=== PATIENT | female | born 1945 | race Caucasian/White ===

== ENCOUNTER 2020-08-10 09:47 | Outpatient (CLI) | payer OTHER, SELFPAY ==
--- NOTE | ~2020-08-10 | MM_ITS ---
EXAMINATION: MM screening [facility] BI [facility] HISTORY: Screening mammogram TECHNIQUE: Craniocaudal and mediolateral oblique 3-D tomosynthesis images were obtained and synthetic 2-D images were generated. CAD analysis was submitted and interpreted. COMPARISON: 06/19/2019, 03/14/2018, 03/01/2017 BREAST PARENCHYMAL COMPOSITION: There are scattered areas of fibroglandular density. FINDINGS: There is no evidence of suspicious mass, calcification, or architectural distortion to sugg est malignancy in either breast. There has been no suspicious interval change. IMPRESSION: 1. No mammographic evidence of malignancy. 2. Recommend routine screening mammography in one year. BI-RADS Category 1: Negative Reviewed, dictated and finalized at location A.
--- NOTE | ~2020-08-10 | DEXA_ITS ---
Bone Density Report Name: Liang Quigley Age: 74 Sex: Female Ethnicity: White Date of : 1945 Indication: osteopenia; parental hip fracture; height loss; asthma or emphysema; Referring Provider: IVON MOHAN Study: Bone densitometry was performed. Exam Date: August 10, 2020 Accession number: [id number] Bone Density: Region BMD T-score Z-score Classification AP Spine (L1-L4) 0.859 -1.7 0.7 Osteopenia Femoral Neck (Left) 0.585 -2.4 -0.3 Osteopenia Total Hip (Left) 0.747 -1.6 0.2 Osteopenia Total Hip Bilateral Avg 0.751 -1.6 0.2 Osteopenia Femoral Neck (Right) 0.599 -2.3 -0.2 Osteopenia Total Hip (Right) 0.755 -1.5 0.2 Osteopenia World Health Organization criteria for BMD impression classify patients as: Normal (T-score at or above -1.0), Osteopenia (T-score between -1.0 and -2.5), or Osteoporosis (T-score at or below -2.5). 10-year Fracture Risk(1): Major Osteoporotic Fracture 28% Hip Fracture 18% Reported Risk Factors: [place] (), Neck BMD=0.585, BMI=25.4, parental fracture (1) FRAX(R) Version 3.08. Fracture probability calculated for an untreated patient. Fracture probability may be lower if the patient has received treatment. Previous Exams: Region Exam Age BMD T-score BMD Change BMD Change Date g/cm2 vs Baseline vs Previous AP Spine(L1-L4) 08/10/2020 74 0.859 -1.7 -0.071(-7.7%)# -0.014(-1.6%) 03/14/2018 72 0.873 -1.6 -0.057(-6.2%)# 0.016(1.9%) 02/10/2016 70 0.857 -1.7 -0.073(-7.9%)# -0.023(-2.6%)# 09/13/2012 66 0.880 -1.5 -0.051(-5.4%)# -0.081(-8.5%)# 09/01/2010 64 0.961 -0.8 0.031(3.3%)* 0.031(3.3%)* 02/20/2008 62 0.930 -1.1 Total Hip(Left) 08/10/2020 74 0.747 -1.6 -0.118(-13.6%) -0.002(-0.3%) 03/14/2018 72 0.749 -1.6 -0.116(-13.4%) -0.026(-3.3%) 02/10/2016 70 0.774 -1.4 -0.090(-10.4%) -0.050(-6.0%)# 09/13/2012 66 0.824 -1.0 -0.040(-4.7%)# -0.022(-2.7%)# 09/01/2010 64 0.846 -0.8 -0.018(-2.1%) -0.018(-2.1%) 02/20/2008 62 0.864 -0.6 Total Hip(Right) 08/10/2020 74 0.755 -1.5 -0.091(-10.7%) -0.025(-3.2%) 03/14/2018 72 0.780 -1.3 -0.066(-7.8%)# -0.005(-0.6%) 02/10/2016 70 0.785 -1.3 -0.061(-7.2%)# 0.011(1.4%)# 09/13/2012 66 0.774 -1.4 -0.072(-8.5%)# -0.056(-6.8%)# 09/01/2010 64 0.830 -0.9 -0.016(-1.9%) -0.016(-1.9%) 02/20/2008 62 0.846 -0.8 *Denotes significance at 95% confidence level, LSC for AP Spine = 0.022 g/cm2, LSC for Total Hip = 0.027 g/cm2 Clinical Information Provided by Patient:
== END 2020-08-10 09:48 | disposition home or self-care (01) ==
PROVIDERS: PCP Physician Assistant; Visit Provider Obstetrics & Gynecology
DX: Z12.31 Encounter for screening mammogram for malignant neoplasm of breast (principal); Z78.0 Asymptomatic menopausal state; M85.88 Other specified disorders of bone density and structure, other site; M85.852 Other specified disorders of bone density and structure, left thigh; M85.851 Other specified disorders of bone density and structure, right thigh
CPT/HCPCS: 77063; 77067; 77080

== ENCOUNTER 2020-08-23 02:11 | Outpatient (CLI) | payer OTHER, SELFPAY ==
[2020-08-23 20:39] LABS: SARS-CoV-2 RNA PCR Negative
== END 2020-08-23 02:12 | disposition home or self-care (01) ==
LOC: ANHCOVIDDT 02:11
PROVIDERS: PCP Physician Assistant; Visit Provider Internal Medicine Gastroenterology
DX: Z01.818 Encounter for other preprocedural examination (principal); Z20.828 Contact with and (suspected) exposure to other viral communicable diseases
CPT/HCPCS: 87635; C9803; U0003

== ENCOUNTER 2020-08-26 00:14 | Day surgery (SDC) | payer OTHER, SELFPAY ==
[2020-08-20 13:54] VITALS: BMI 24.5
[2020-08-26 06:12] VITALS: BP 120/61; PULSE 82; RESP 18; TEMP 36; O2SAT 93; BMI 24.7
--- NOTE | 2020-08-26 06:34 | WPDANESEPPF ---
Anes - Initial Pre Proc Eval Procedure: Operation Date: 08/26/20 07:30 Proposed Procedures p Screening Colonoscopy - Dwayne Carlson MD Date/Time: 08/26/20 06:34 Surgeon: Dwayne Carlson MD Pre Op Diagnosis: Neoplasm Screening/ Fam Hx Colon Ca Patient Data Age: 74 Gender: F Height: 1.68 m Weight: 69.4 kg Last Vital Signs Temp 36.0 C L 08/26/20 06:12 Pulse 82 08/26/20 06:12 Resp 18 08/26/20 06:12 BP 120/61 08/26/20 06:12 Pulse Ox 93 08/26/20 06:12 Allergies Allergy/AdvReac Type Severity Reaction Status Date / Time NKA Allergy Unknown Unknown Uncoded 08/26/20 06:22 Home Medications Medication Instructions Recorded Confirmed Type calcium carbonate-vitamin D3 600 1 tablet PO DAILY 02/17/20 08/20/20 History mg-125 unit tablet fluticasone propionate 115 2 puff INHALATION BID 02/17/20 08/20/20 History mcg-salmeterol 21 mcg/actuation HFA inhaler multivitamin 1 tablet PO DAILY 02/17/20 08/20/20 History simvastatin 10 mg tablet 40 mg PO DAILY 02/17/20 08/20/20 History montelukast [Singulair] 10 mg DAILY 08/20/20 08/20/20 History Patient hx anesthesia problems: none Family hx anesthesia problems: none PMFSH Past Medical History Medical History (Updated 08/03/20 @ 08:45 by Ugo Richards MD) Adhesive capsulitis of right shoulder Asthma BMI 25.0-25.9,adult High cholesterol History of vaginal delivery x 3 Surgical History Surgical History History of cholecystectomy Family History Family History Father Family history of elevated blood lipids Mother Carcinoma of colon Patient's mother is Other Diabetes mellitus Social History Social History Smoking status: Never smoker Second hand tobacco smoke exposure: No Smoking end date: 10/15/06 Alcohol intake: current Drinks per week: 1 Alcohol use details: SOCIALLY Substance use: never Substance use type: does not use Living arrangements: with family Gender identity (if verbalized by the patient): Female Sexual Orientation (if Verbalized by the Patient): Straight or Heterosexual Spiritual care concerns: No Anes - Eval Final PreProcedure Day of Procedure 08/26/20 06:34 Patient weight: normal Heart: regular rate and rhythm Lungs: clear to auscultation and normal air movement Airway: Mallampati scale class II Neurological: alert and oriented Last oral intake: >/= 8 hours ASA classification: II Emergent: no Anesthetic plan: proceed Anesthesia type and monitoring: general GIVS Informed Consent: The patient's anesthetic plan and its attendant risks and benefits were discussed with the patient/family/POA. Questions were solicited and answers provided to the satisfaction of the patient/family/POA.
[2020-08-26] MEDS: LACTATED RINGERS 1,000 ML 150 ML IV CONT (06:41)
--- NOTE | 2020-08-26 07:48 | P.CONGI_ITS ---
Assessment and Plan Assessment and plan (1) Family history of colon cancer in mother: Code(s): Z80.0 - Family history of malignant neoplasm of digestive organs Status: Acute Assessment and Plan: Patient's mother had colon cancer. Plan is for surveillance colonoscopy at least at 5 year intervals. GI Consult Note Consult date/time: 08/26/20 07:48 HPI: Liang Quigley is a 74 year old female Seen in evaluation at the request of MORGAN Cano. patient's family history is significant her mother had colon cancer. She presents today for screening colonoscopy. She still states that her current weight appetite bowel movements are normal. She denies abdominal pain. She has had no bleeding. Her last colonoscopy was 5 years ago. Review of Systems Review of Systems: All systems reviewed & are unremarkable except as noted in HPI and below PMFSH Past Medical History Medical History (Updated 08/26/20 @ 07:49 by Dwayne Carlson MD) Adhesive capsulitis of right shoulder Asthma BMI 25.0-25.9,adult High cholesterol History of vaginal delivery x 3 Surgical History Surgical History History of cholecystectomy Family History Family History Father Family history of elevated blood lipids Mother Carcinoma of colon Patient's mother is Other Diabetes mellitus Social History Social History Smoking status: Never smoker Second hand tobacco smoke exposure: No Smoking end date: 10/15/06 Alcohol intake: current Drinks per week: 1 Alcohol use details: SOCIALLY Substance use: never Substance use type: does not use Living arrangements: with family Gender identity (if verbalized by the patient): Female Sexual Orientation (if Verbalized by the Patient): Straight or Heterosexual Spiritual care concerns: No Meds Home Medications and Allergies Home Medications Medication Instructions Recorded Confirmed Type calcium carbonate-vitamin D3 600 1 tablet PO DAILY 02/17/20 08/20/20 History mg-125 unit tablet fluticasone propionate 115 2 puff INHALATION BID 02/17/20 08/20/20 History mcg-salmeterol 21 mcg/actuation HFA inhaler multivitamin 1 tablet PO DAILY 02/17/20 08/20/20 History simvastatin 10 mg tablet 40 mg PO DAILY 02/17/20 08/20/20 History montelukast [Singulair] 10 mg DAILY 08/20/20 08/20/20 History Allergies Allergy/AdvReac Type Severity Reaction Status Date / Time NKA Allergy Unknown Unknown Uncoded 08/26/20 06:22 Vital Signs Vital Signs - 24 hr 08/26/20 06:12 Temperature 96.8 F L Pulse Rate 82 Respiratory Rate 18 Blood Pressure 120/61 Pulse Oximetry 93 Exam Narrative: Exam Narrative: Physical exam reveals patient be alert. Vital signs stable. HEENT exam unremarkable. Lungs are clear to auscultation and percussion. Heart is without murmur or extra sounds. Abdominal exam bowel so unds are present soft nontender with no organomegaly. Digital external rectal exam normal.
[2020-08-26 07:51] VITALS: BP 90/40; PULSE 74; RESP 21; O2SAT 95
[2020-08-26 08:00] VITALS: BP 85/64; PULSE 71; RESP 17; O2SAT 97
[2020-08-26 08:10] VITALS: BP 107/68; PULSE 67; RESP 17; O2SAT 97
== END 2020-08-26 08:27 | disposition home or self-care (01) ==
PROVIDERS: PCP Physician Assistant; Visit Provider Internal Medicine Gastroenterology
PROC: 0DJD8ZZ Inspection of Lower Intestinal Tract, Via Natural or Artificial Opening Endoscopic (ICD-10-PCS; CPT 45378; principal; 2020-08-26 07:30)
DX: Z12.11 Encounter for screening for malignant neoplasm of colon (principal); D12.2 Benign neoplasm of ascending colon; K57.30 Diverticulosis of large intestine without perforation or abscess without bleeding; K64.8 Other hemorrhoids; Z80.0 Family history of malignant neoplasm of digestive organs; J45.909 Unspecified asthma, uncomplicated; E78.00 Pure hypercholesterolemia, unspecified
CPT/HCPCS: 45385; 88305; J2704; J7120

== ENCOUNTER 2020-09-24 10:00 | Outpatient (RCR) | payer OTHER, SELFPAY ==
--- NOTE | 2020-08-13 13:36 | PTOPEVAL ---
PHYSICAL THERAPY EVALUATION Thank you for referring Liang Quigley to [facility].? Liang was evaluated today for the dx of right shoulder adhesive capsulitis. The patient is scheduled to be seen for therapy? 2 x/week for 4 weeks. Please review, sign, date and return this plan of care BURCE. I agree with and certify that the following plan of care is medically necessary. Referring Physician Date Attending Provider: Ugo Richards MD *PT Outpatient Evaluation Start: 08/13/20 12:32 Freq: Status: Active Protocol: Document 08/13/20 12:32 MLV (Rec: 08/13/20 13:36 [facility] [id number]) Therapy Assessment Status Evaluation Information Problem Diagnosis right adhesive capsulitis Onset 6-8 months Cause none Additional Evaluation Detail Patient started having trouble dressing/reaching behind her back then having trouble with golfing. Patient doesn't have pain at night or if still. Subjective Information Patient denies prior issues at Query Text:As Reported By Patient/ right shoulder, but has hx of Family PT to left shoulder for impingement. Diagnostic Tests X-Rays For This Problem Yes: clear Pain Assessment Timing of Pain Assessment Timing of Pain Assessment Assessment Pain Scale Pain Scale Used Numeric (1 - 10) Self Report Pain Assessment Right Shoulder(s) Reported Pain Level 0 Pain Description With Movement Pain Frequency Acute Greatest Pain Intensity 5 Additional Pain Comments Dash score 20% Pain Score Pain Score 0: Self Report Interventions Used Interventions Used By Clinicians Education,Exercise,Heat Pain Relief Interventions Used By Inactivity/Rest Patient Upper Extremity Range of Motion General Upper Extremity Range of Motion Gross Upper Extremity Range of Motion left shoulder: flexion 157, Comments abduction 160, extension 86 ER 95, IR 85 degrees active right shoulder: flexion 129, abduction 147, extension 72 ER 71, IR 64 degrees active * edna. elbows/wrists WNL's Upper Extremity Muscle Strength Testing General Upper Extremity Strength Reason Not Measured WFL/Left,WFL/Right Posture Posture Standing Position Posture Evaluation View all Head/C-Spine Posture Neutral Position Thoracic Spine Posture Neutral Shoulder Posture (L) Rounded,(R) Rounded Scapula Posture (L) Protracted,(R) Protracted Arm Posture
--- NOTE | 2020-09-08 09:54 | PCPTNOTE ---
Patient did not show up for scheduled appointment this date. Patient was called-did not remember having an appointment today. Plan to reschedule missed appointment when patient comes for next appt. on Sunday.
--- NOTE | 2020-09-24 10:48 | PTOPEVAL ---
Addendum entered by Adrianne Guevara, PT 09/24/20 10:51: PHYSICAL THERAPY DISCHARGE SUMMARY Original Note: Thank you for referring Liang Quigley to [facility].? The patient has been seen 10 visits for right shoulder adhesive capsulitis. Goals have been met and patient will continue home program. Please review, sign, date and return this plan of care BRUCE. I agree with and certify the following plan of care. Referring Physician Date Attending Provider: Ugo Richards MD *PT Outpatient Evaluation Start: 08/13/20 12:32 Freq: Status: Active Protocol: Document 09/24/20 10:00 MLV (Rec: 09/24/20 10:48 MLV [id number]) Assessment Status Discharge Pain Assessment Timing of Pain Assessment Timing of Pain Assessment Assessment Self Report Self Report Pain Level 0 Pain Score Pain Score 0: Self Report Upper Extremity Range of Motion General Upper Extremity Range of Motion Gross Upper Extremity Range of Motion right shoulder active motion Comments improved: flexion 173 dg, abduction 175 dg, ER 90 dg, IR 80 dg, extension 80 degrees Upper Extremity Muscle Strength Testing General Upper Extremity Strength Reason Not Measured WFL/Left,WFL/Right Palpation Assessment Palpation improved capsular mobility 75/ 100% right shoulder PT Clinical Summary Mrs. Quigley has completed 10 visits for progressive shoulder/capsular mobility with modalities prn. Liang has gained full motion and good capsular mobility. The patient reports no limits to her normal activities or use of right arm. Goals have been met.
== END 2020-09-27 10:55 | disposition home or self-care (01) ==
LOC: ANHPT 10:00
PROVIDERS: PCP Physician Assistant; Visit Provider Orthopaedic Surgery
DX: M75.00 Adhesive capsulitis of unspecified shoulder (principal)
CPT/HCPCS: 97110; 97140; 97161

== ENCOUNTER 2021-10-19 11:34 | Outpatient (CLI) | payer OTHER, SELFPAY ==
--- NOTE | ~2021-10-19 | MM_ITS ---
EXAMINATION: MM screening [facility] BI [facility] HISTORY: Screening mammogram TECHNIQUE: Craniocaudal and mediolateral oblique 3-D tomosynthesis images were obtained and synthetic 2-D images were generated. CAD analysis was submitted and interpreted. COMPARISON: 08/10/2020, 06/19/2019, 03/14/2018 BREAST PARENCHYMAL COMPOSITION: There are scattered areas of fibroglandular density. FINDINGS: There is no evidence of suspicious mass, calcification, or architectural distortion to sugg est malignancy in either breast. There has been no suspicious interval change. IMPRESSION: 1. No mammographic evidence of malignancy. 2. Recommend routine screening mammography in one year. BI-RADS Category 2: Benign finding(s). Reviewed, dictated and finalized at location A. E GROWER
== END 2021-10-19 11:35 | disposition home or self-care (01) ==
LOC: ANHIMG 11:39
PROVIDERS: PCP Physician Assistant; Visit Provider Obstetrics & Gynecology
DX: Z12.31 Encounter for screening mammogram for malignant neoplasm of breast (principal)
CPT/HCPCS: 77063; 77067

== ENCOUNTER 2023-02-16 09:28 | Outpatient (CLI) | payer OTHER, SELFPAY ==
--- NOTE | ~2023-02-16 | MM_ITS ---
EXAMINATION: MM screening [facility] BI [facility] HISTORY: Screening mammogram TECHNIQUE: Craniocaudal and mediolateral oblique 3-D tomosynthesis images were obtained and synthetic 2-D images were generated. CAD analysis was submitted and interpreted. COMPARISON: 10/19/2019 12/10/2019 519 BREAST PARENCHYMAL COMPOSITION: There are scattered areas of fibroglandular density. FINDINGS: No suspicious mass, calcification, or architectural distortion are identified in either myla ast to suggest malignancy. There has been no suspicious interval change. IMPRESSION: 1. No mammographic evidence of malignancy. 2. Recommend routine screening mammography in one year. BI-RADS Category 1: Negative Reviewed, dictated and finalized at location A.
--- NOTE | ~2023-02-16 | DEXA_ITS ---
Bone Density Report Name: ROSALIA ROONEY Age: 77 Sex: Female Ethnicity: White Date of : 1945 Indication: osteopenia; height loss; asthma or emphysema; postmenopausal Referring Provider: IVON MOHAN Study: Bone densitometry was performed. Exam Date: February 16, 2023 Accession number: [id number] Bone Density: Region BMD T-score Z-score Classification AP Spine(L1-L4) 0.838 -1.9 0.6 Osteopenia Femoral Neck (Left) 0.563 -2.6 -0.4 Osteoporosis Total Hip (Left) 0.734 -1.7 0.2 Osteopenia Femoral Neck (Right) 0.594 -2.3 -0.1 Osteopenia Total Hip (Right) 0.731 -1.7 0.2 Osteopenia Total Hip Mean 0.733 -1.7 0.2 Osteopenia World Health Organization criteria for BMD impression classify patients as: Normal (T-score at or above -1.0), Osteopenia (T-score between -1.0 and -2.5), or Osteoporosis (T-score at or below -2.5). 10-year Fracture Risk: FRAX not reported because: Some T-score for Spine Total or Hip Total or Femoral Neck at or below -2.5 Previous Exams: Region Exam Age BMD T-score BMD Change BMD Change Date g/cm2 vs Baseline vs Previous AP Spine (L1-L4) 02/16/2023 77 0.838 -1.9 -0.042 (-4.7%) -0.021 (-2.4%) 08/10/2020 74 0.859 -1.7 -0.021 (-2.4%) -0.014 (-1.6%) 03/14/2018 72 0.873 -1.6 -0.007 (-0.8%) 0.016 (1.9%) 02/10/2016 70 0.857 -1.7 -0.023 (-2.6%) -0.023 (-2.6%) 09/13/2012 66 0.880 -1.5 Total Hip(Left) 02/16/2023 77 0.734 -1.7 -0.090 (-10.9% -0.012 (-1.6%) 08/10/2020 74 0.747 -1.6 -0.077 (-9.4%) -0.002 (-0.3%) 03/14/2018 72 0.749 -1.6 -0.075 (-9.1%) -0.026 (-3.3%) 02/10/2016 70 0.774 -1.4 -0.050 (-6.0%) -0.050 (-6.0%) 09/13/2012 66 0.824 -1.0 Total Hip(Right) 02/16/2023 77 0.731 -1.7 -0.043 (-5.5%) -0.024 (-3.2%) 08/10/2020 74 0.755 -1.5 -0.019 (-2.4%) -0.025 (-3.2%) 03/14/2018 72 0.780 -1.3 0.006 (0.8%)# -0.005 (-0.6%) 02/10/2016 70 0.785 -1.3 0.011 (1.4%)# 0.011 (1.4%)# 09/13/2012 66 0.774 -1.4 *Denotes significance at 95% confidence level, LSC for AP Spine = 0.022 g/cm2, LSC for Total Hip = 0.027 g/cm2 # Denotes dissimilar scan types or analysis methods Clinical Information Provided by Patient: Has used the following medications: Vitamin D, Calcium Has the following medical conditions: Asthma or Emphysema Patient maximum height was 67 Menopause Age: 54 Drinks caffeinated beverages Onset of menses at age 10 Number of children 3
== END 2023-02-16 09:29 | disposition home or self-care (01) ==
LOC: ANHIMG 09:31
PROVIDERS: PCP Physician Assistant; Visit Provider Obstetrics & Gynecology
DX: Z12.31 Encounter for screening mammogram for malignant neoplasm of breast (principal); M85.88 Other specified disorders of bone density and structure, other site; M81.0 Age-related osteoporosis without current pathological fracture; M85.852 Other specified disorders of bone density and structure, left thigh; M85.851 Other specified disorders of bone density and structure, right thigh
CPT/HCPCS: 77063; 77067; 77080

== ENCOUNTER 2023-05-13 11:42 | Emergency (ER) | payer OTHER, SELFPAY ==
[2023-05-13 11:43] VITALS: BP 145/59; PULSE 88; RESP 16; TEMP 36.3; O2SAT 94
[2023-05-13] MEDS: LIDOCAINE HCL 2% VISC SOLN 15 ML UDC (12:43)
--- NOTE | 2023-05-13 12:49 | ED.EAR ---
HPI - Ear Problem General Chief complaint: Ear Stated complaint: bug in R ear Time Seen by Provider: 05/13/23 12:09 History of Present Illness HPI Narrative: This is a 77-year-old female with no significant past medical history, presents emergency department with a suspected insect in her right ear. The patient states she was at her pool, when she felt an insect fly into her ear. She attempted to remove it herself but believes she pushed it further back. She complains of sharp, right-sided ear pain, rated 4/10. She has no other complaints today. Related Data Home Medications Medication Instructions Recorded Confirmed multivitamin (Daily Multi-Vitamin 1 tablet PO DAILY 02/17/20 04/20/23 tablet) simvastatin 10 mg tablet (Zocor) 40 mg PO DAILY 02/17/20 04/20/23 montelukast 10 mg tablet 10 mg DAILY 08/20/20 04/20/23 (Singulair) latanoprost 0.005 % eye drops 1 drp EACH EYE DAILY 12/06/22 04/20/23 cholecalciferol (vitamin D3) 25 25 mcg PO DAILY 04/20/23 04/20/23 mcg (1,000 unit) capsule fluticasone furoate 100 1 inh inhalation DAILY 04/20/23 04/20/23 mcg-vilanterol 25 mcg/dose inhalation powder (Breo Ellipta) triamcinolone acetonide 0.05 % 1 applic topical DAILY 04/20/23 04/20/23 topical ointment Allergies Allergy/AdvReac Type Severity Reaction Status Date / Time NKA Allergy Unknown Unknown Uncoded 05/13/23 12:25 Review of Systems Review of Systems: CONSTITUTIONAL: Denies fever, chills, or sweats. ENT: Right ear pain, suspected foreign object in right ear denies rhinorrhea, congestion, sore throat, CARDIOVASCULAR: Denies chest pain, palpitations, or edema. RESPIRATORY: Denies cough or dyspnea. GASTROINTESTINAL: Denies abdominal pain, nausea, vomiting, or diarrhea. MUSCULOSKELETAL: Denies back pain, joint pain, or myalgia. NEUROLOGIC: Denies headache, numbness, dizziness, or weakness. [facility] Past Medical History Medical History Adhesive capsulitis of right shoulder Asthma BMI 25.0-25.9,adult High cholesterol History of vaginal delivery x 3 Surgical History Surgical History History of bilateral tubal ligation History of cholecystectomy Hx of hand surgery Family History Family History Father Family history of elevated blood lipids Mother Carcinoma of colon Patient's mother is Other Diabetes mellitus Social History Social History Smoking status: Former smoker Second hand tobacco smoke exposure: No Smoking end date: 10/15/06 Alcohol intake: current Drinks per week: 1 Alcohol use details: SOCIALLY Substance use: never Substance use type: does not use Lack of Transportation: No Lack of Food: Never True Current Housing: I Have Housing Concerned About Future Housing: No Difficulty Paying Gas/Electric Bills: No Difficulty Paying for Meds: No Currently Unemployed: No Education: High School Diploma/GED Difficulty w/ Childcare or Family Care: No Living arrangements: with family Occupation/Education: retired Gender identity (if verbalized by the patient): Female Sexual Orientation (if Verbalized by the Patient): Straight or Heterosexual Spiritual care concerns: No Exam Narrative: GENERAL: Well-developed, well-nourished, and in no acute distress. HEAD: Normocephalic, atraumatic. EYES: PERRLA and EOMI. ENT: Nares clear, no rhinorrhea or epistaxis. Mucous membranes moist. Oropharynx without tonsillar hypertrophy exudate or other lesions. There is a foreign object in the right ear that appears consistent with a small insect. There is small amount of erythema noted at the superior aspect of the right TM and to the 11 o'clock position. TM appears intact. The left TM and external auditory canal appear
[2023-05-13 13:35] VITALS: BP 144/82; PULSE 69; RESP 18; O2SAT 94
== END 2023-05-13 13:37 | disposition home or self-care (01) ==
PROVIDERS: Emergency Provider Preventive Medicine Aerospace Medicine; PCP Physician Assistant
DX: T16.1XXA Foreign body in right ear, initial encounter (principal); J45.909 Unspecified asthma, uncomplicated; E78.00 Pure hypercholesterolemia, unspecified; Z90.49 Acquired absence of other specified parts of digestive tract; Z87.891 Personal history of nicotine dependence
CPT/HCPCS: 69200; 99282

== ENCOUNTER 2023-10-02 02:00 | Day surgery (SDC) | payer OTHER, SELFPAY ==
[2023-09-17 09:24] VITALS: BMI 24.2
--- NOTE | 2023-09-28 10:22 | SUR.PREOP ---
Patient called regarding upcoming procedure. Message left on pt's voicemail regarding appointment times.
[2023-10-02] MEDS: LACTATED RINGERS 1,000 ML 150 ML IV CONT (09:08)
[2023-10-02 09:13] VITALS: BP 117/48; PULSE 78; RESP 18; TEMP 36.2; O2SAT 95
--- NOTE | 2023-10-02 09:52 | PM.HPGS ---
History of Present Illness History of Present Illness Consent: Risks, benefits, and alternatives have been discussed and questions answered. Patient agrees to proceed with procedure. Chief complaint: history of colon polyps Narrative: Liang Quigley is a 77 year old female Presents for screening colonoscopy. Patient's current weight appetite and bowel movements are normal. Patient denies abdominal pain. She has had no bleeding. Family history noncontributory. Patient was found to have adenomatous colon polyp the time previous colonoscopy in 2019. Review of Systems Review of Systems: Review of systems noncontributory. [facility] Past Medical History Medical History Adhesive capsulitis of right shoulder Asthma BMI 25.0-25.9,adult High cholesterol History of vaginal delivery x 3 Surgical History Surgical History History of bilateral tubal ligation History of cholecystectomy Hx of hand surgery Family History Family History Father Family history of elevated blood lipids Mother Carcinoma of colon Patient's mother is Other Diabetes mellitus Social History Social History Smoking packs per day: 1 Smoking cigarettes per day: 20.0 Years smoked: 25 Smoking pack-years: 25.00 Smoking status: Former smoker Second hand tobacco smoke exposure: No Smoking end date: 10/15/06 Alcohol intake: current Drinks per week: 1 Alcohol use details: socially Substance use: never Substance use type: does not use Lack of Transportation: No Lack of Food: Never True Current Housing: I Have Housing Concerned About Future Housing: No Difficulty Paying Gas/Electric Bills: No Difficulty Paying for Meds: No Currently Unemployed: No Education: High School Diploma/GED Difficulty w/ Childcare or Family Care: No Living arrangements: other Additional living arrangements comments: with sp Occupation/Education: retired Gender identity (if verbalized by the patient): Female Sexual Orientation (if Verbalized by the Patient): Straight or Heterosexual Spiritual care concerns: No Meds Home Medications and Allergies Home Medications Medication Instructions Recorded Confirmed Type multivitamin (Daily Multi-Vitamin 1 tablet PO DAILY 02/17/20 09/17/23 History tablet) simvastatin 10 mg tablet (Zocor) 40 mg PO DAILY 02/17/20 09/17/23 History montelukast 10 mg tablet 10 mg PO DAILY 08/20/20 09/17/23 History (Singulair) latanoprost 0.005 % eye drops 1 drp EACH EYE DAILY 12/06/22 09/17/23 History alendronate 70 mg tablet 70 mg PO WEEKLY #12 tabs 04/20/23 09/17/23 Rx cholecalciferol (vitamin D3) 25 25 mcg PO DAILY 04/20/23 09/17/23 History mcg (1,000 unit) capsule fluticasone furoate 100 1 inh inhalation DAILY 04/20/23 09/17/23 History mcg-vilanterol 25 mcg/dose inhalation powder (Breo Ellipta) triamcinolone acetonide 0.05 % 1 applic topical DAILY 04/20/23 09/17/23 History topical ointment Allergies Allergy/AdvReac Type Severity Reaction Status Date / Time No Known Allergies Allergy Verified 10/02/23 09:00 Vital Signs Vital Signs - 24 hr 10/02/23 09:13 Temperature 97.1 F L Pulse Rate 78 Respiratory Rate 18 Blood Pressure 117/48 L Pulse Oximetry 95 Oxygen Delivery Room Air Exam Narrative: Physical exam reveals patient to be alert. Vital signs stable. HEENT exam is unremarkable. Patient was anicteric. Lungs are clear to auscultation and percussion. Heart is without murmur or extra sounds. Abdomen bowel sounds present soft nontender with no organomegaly. Digital external rectal exam normal. Assessment and Plan Assessment and plan (1) Family history of colon cancer in mother: Code(s
--- NOTE | 2023-10-02 10:06 | WPDANESEPPF ---
Anes - Initial Pre Proc Eval Procedure: Operation Date: 10/02/23 10:00 Proposed Procedures p Colonoscopy - Dwayne Carlson MD Date/Time: 10/02/23 10:06 Surgeon: Dwayne Carlson MD Pre Op Diagnosis: history of colon polyps Patient Data Age: 77 Gender: F Height: 1.65 m Weight: 65.8 kg Last Vital Signs Temp 36.2 C L 10/02/23 09:13 Pulse 78 10/02/23 09:13 Resp 18 10/02/23 09:13 BP 117/48 L 10/02/23 09:13 Pulse Ox 95 10/02/23 09:13 O2 Del Method Room Air 10/02/23 09:13 Allergies Allergy/AdvReac Type Severity Reaction Status Date / Time No Known Allergies Allergy Verified 10/02/23 09:00 Home Medications Medication Instructions Recorded Confirmed Type multivitamin (Daily Multi-Vitamin 1 tablet PO DAILY 02/17/20 09/17/23 History tablet) simvastatin 10 mg tablet (Zocor) 40 mg PO DAILY 02/17/20 09/17/23 History montelukast 10 mg tablet 10 mg PO DAILY 08/20/20 09/17/23 History (Singulair) latanoprost 0.005 % eye drops 1 drp EACH EYE DAILY 12/06/22 09/17/23 History alendronate 70 mg tablet 70 mg PO WEEKLY #12 tabs 04/20/23 09/17/23 Rx cholecalciferol (vitamin D3) 25 25 mcg PO DAILY 04/20/23 09/17/23 History mcg (1,000 unit) capsule fluticasone furoate 100 1 inh inhalation DAILY 04/20/23 09/17/23 History mcg-vilanterol 25 mcg/dose inhalation powder (Breo Ellipta) triamcinolone acetonide 0.05 % 1 applic topical DAILY 04/20/23 09/17/23 History topical ointment Patient hx anesthesia problems: none Family hx anesthesia problems: none Results Review: All pre-operative results and documents have been reviewed as part of the pre-operative evaluation. [facility] Past Medical History Medical History Adhesive capsulitis of right shoulder Asthma BMI 25.0-25.9,adult High cholesterol History of vaginal delivery x 3 Surgical History Surgical History History of bilateral tubal ligation History of cholecystectomy Hx of hand surgery Family History Family History Father Family history of elevated blood lipids Mother Carcinoma of colon Patient's mother is Other Diabetes mellitus Social History Social History Smoking packs per day: 1 Smoking cigarettes per day: 20.0 Years smoked: 25 Smoking pack-years: 25.00 Smoking status: Former smoker Second hand tobacco smoke exposure: No Smoking end date: 10/15/06 Alcohol intake: current Drinks per week: 1 Alcohol use details: socially Substance use: never Substance use type: does not use Lack of Transportation: No Lack of Food: Never True Current Housing: I Have Housing Concerned About Future Housing: No Difficulty Paying Gas/Electric Bills: No Difficulty Paying for Meds: No Currently Unemployed: No Education: High School Diploma/GED Difficulty w/ Childcare or Family Care: No Living arrangements: other Additional living arrangements comments: with sp Occupation/Education: retired Gender identity (if verbalized by the patient): Female Sexual Orientation (if Verbalized by the Patient): Straight or Heterosexual Spiritual care concerns: No Anes - Eval Final PreProcedure Day of Procedure 10/02/23 10:06 Patient weight: normal Heart: regular rate and rhythm Lungs: clear to auscultation Airway: Mallampati scale class II Neurological: alert and oriented Last oral intake: >/= 8 hours ASA classification: II Emergent: no Anesthetic plan: proceed Anesthesia type and monitoring: general GIVS and standard monitoring Results Review: All pre-operative results and documents have been reviewed as part of the pre-operative evaluation. Informed Consent: The patient's anesthetic plan and its attendant risks and benefits were discussed with
[2023-10-02 10:54] VITALS: BP 120/66; PULSE 77; RESP 25; O2SAT 97
[2023-10-02 11:04] VITALS: BP 133/62; PULSE 75; RESP 25; O2SAT 95
[2023-10-02 11:14] VITALS: BP 123/75; PULSE 68; RESP 23; O2SAT 96
== END 2023-10-02 11:27 | disposition home or self-care (01) ==
PROVIDERS: PCP Physician Assistant; Visit Provider Internal Medicine Gastroenterology
PROC: 0DJD8ZZ Inspection of Lower Intestinal Tract, Via Natural or Artificial Opening Endoscopic (ICD-10-PCS; CPT 45378; principal; 2023-10-02 10:00)
DX: Z12.11 Encounter for screening for malignant neoplasm of colon (principal); K64.8 Other hemorrhoids; K57.30 Diverticulosis of large intestine without perforation or abscess without bleeding; Z86.010 Personal history of colon polyps; Z80.0 Family history of malignant neoplasm of digestive organs; J45.909 Unspecified asthma, uncomplicated; E78.00 Pure hypercholesterolemia, unspecified; Z87.891 Personal history of nicotine dependence
CPT/HCPCS: 45378; J7120

== ENCOUNTER 2024-05-30 08:57 | Outpatient (CLI) | payer OTHER, SELFPAY ==
--- NOTE | ~2024-05-30 | MM_ITS ---
EXAMINATION: MM screening [facility] BI w [facility] HISTORY: Screening TECHNIQUE: Craniocaudal and mediolateral oblique 3-D tomosynthesis images were obtained and synthetic 2-D images were generated. CAD analysis was submitted and interpreted. COMPARISON: Comparison to multiple prior studies sequentially, with oldest reviewed study dated 03/01. BREAST PARENCHYMAL COMPOSITION: There are scattered areas of fibroglandular density. FINDINGS: There is no evidence of suspicious mass, calcification, or architectural distortion to sugg est malignancy in either breast. There has been no suspicious interval change. IMPRESSION: 1. No mammographic evidence of malignancy. 2. Recommend routine screening mammography in one year. BI-RADS Category 1: Negative Reviewed, dictated and finalized at location B.
== END 2024-05-30 08:58 | disposition home or self-care (01) ==
PROVIDERS: PCP Physician Assistant; Visit Provider Obstetrics & Gynecology
DX: Z12.31 Encounter for screening mammogram for malignant neoplasm of breast (principal)
CPT/HCPCS: 77063; 77067

== ENCOUNTER 2025-03-16 11:00 | Outpatient (RCR) | payer OTHER, SELFPAY ==
--- NOTE | 2025-01-28 08:57 | OPREHPOC ---
Outpatient Therapy Plan of Care This is a Multidisciplinary Plan of Care that may contain components documented by all disciplines (PT, OT, and ST.) PT Problem 1 PT Problem #1 Knowledge Deficit PT Goal 1 Goal / Goal Update *independent with HEP Target Visit 8 PT Problem 2 PT Problem #2 Pain PT Goal 1 Goal / Goal Update * pt report pain rating of 4/10 at worst Target Visit 8 PT Goal 2 Goal / Goal Update * pt report able to do kitchen tasks without an increase in pain Target Visit 8 PT Problem 3 PT Problem #3 Impaired Strength PT Goal 1 Goal / Goal Update *increase scapular-thoracic strength: to improve posture and GH positioning, to decrease impingement: 1* pt maintain correct shoulder posture during PT sessions 2* pt perform 20 reps of scapular-thoracic strengthening exercises in standing and on mat 3* pt perform bilateral UE lift 15# box waist/ waist height x 3 reps without pain increase Target Visit 8
--- NOTE | 2025-01-28 08:57 | PTOPEVAL1 ---
Assessment and note entered by Alyce Erwin, PT Evaluation Information Assessment Status Evaluation ICD-10 Condition Codes (PT) Pain in right shoulder M25.511 Other ICD-10 Condition Codes ( M75.21 R bicep tendinitis,chronic R shoulder PT) painM25.511 Onset Sep 2024 Subjective Information chronic R shoulder pain, gradual increase, went to ortho dr x ray- per pt-- arthritis in Shoulder; have had 2 injections in shoulder and they did not help her pain. R hand dominant; limited lifting with R arm- kitchen tasks, lifting pot off stove- not overhead, weight; reach up high hurts activity: retired, active- golf, independent with all home and self care tasks; Reported Pain Level Pain Score Self Report Additional Pain Score Comments pain range in the past week 0-8/10; anterior shoulder: dull pain, with sharp when lifting decrease pain: rest, voltaren increase pain: lifting overhead, lift pot off stove,bending elbow and lifting at lower heights sleeping is OK, was able to golf OK, able to lie on her R side not using heat/ice- instruct on PRN use 10-15 min Assessment PT Clinical Summary Liang has the diagnosis of R shoulder pain. She has had 2 injections and they did not help her pain. DASH self assessment of 24% limitation in activity level. She is R hand dominant, has active lifestyle and has limited the use of her R arm to help the pain. Her history includes R and L shoulder pain and frozen R shoulder. With the evaluation: R shoulder active ROM is WNL , with pain increase with shoulder abduction and elbow flexion motions; posture with rounded shoulders; decrease scapular strength. Skilled PT services are indicated for treatment of R shoulder impingement/tendonitis: modalities to decrease pain; therapeutic exercises to increase pec flexibility and improve posture and position of GH joint with education for HEP and body mechanics. Plan of Care Interventions Electrical Stimulation,Hot Pack/Cold Pack,Manual Therapy,Neuro Re-education,Patient/Caregiver Education,Therapeutic Activities,Therapeutic Exercise,Ultrasound,Other Other Interventions taping PT Services Indicated Yes Treatment Frequency and 1-2x/wk for 8 visits Duration These treatments will address the objective and functional deficits as defined above. The patient will be advanced safely and appropriately in order for the patient to progress towards his/her prior level of function. Additional exercises will be introduced and as well as a comprehensive home exercise program upon discharge, if needed, ?to ensure carryover of functional gains achieved in the clinic. This treatment plan has been reviewed and agreement upon by the patient.
--- NOTE | 2025-03-16 11:30 | OPREHPOC ---
Outpatient Therapy Plan of Care This is a Multidisciplinary Plan of Care that may contain components documented by all disciplines (PT, OT, and ST.) PT Problem 1 PT Problem #1 Knowledge Deficit PT Goal 1 Goal / Goal Update *independent with HEP 6-2-25 d/c goal met Target Visit 8 Progress Met PT Problem 2 PT Problem #2 Pain PT Goal 1 Goal / Goal Update * pt report pain rating of 4/10 at worst 6-2-25 d/c goal met Target Visit 8 Progress Met PT Goal 2 Goal / Goal Update * pt report able to do kitchen tasks without an increase in pain 6-2-25 d/c goal met Target Visit 8 Progress Met PT Problem 3 PT Problem #3 Impaired Strength PT Goal 1 Goal / Goal Update *increase scapular-thoracic strength: to improve posture and GH positioning, to decrease impingement: 1* pt maintain correct shoulder posture during PT sessions 2* pt perform 20 reps of scapular-thoracic strengthening exercises in standing and on mat 3* pt perform bilateral UE lift 15# box waist/ waist height x 3 reps without pain increase 6-2-25 d/c goal met Target Visit 8 Progress Met
--- NOTE | 2025-03-16 11:30 | PTOPDC ---
Assessment and note entered by Alyce Erwin, PT Assessment Status Discharge ICD-10 Condition Codes (PT) Pain in right shoulder M25.511 Other ICD-10 Condition Codes ( M75.21 R bicep tendinitis,chronic R shoulder PT) painM25.511 Onset Sep 2024 Subjective Information shoulder is so much better; been doing the exercises at home; can do just about anything now, but lifting heavy things; able to do all of her home and kitchen things, had some slight pain with scrubbing and pushing hard onto her arm. Reported Pain Level Pain Score Self Report Additional Pain Score Comments pain range in the past week: 0-1/10- twinge of pain with scrubbing the floor; Assessment PT Clinical Summary Liang has received 8 PT sessions. She has improved in all areas: today reports pain range of 0-1/10; self assessment Quick DASH rating of 5% limitation in activity level; R shoulder ROM is WNL and no pain reported; good strength & posture of shoulder and has returned to all of her usual home tasks and education completed for HEP. The goals were achieved. Discharge PT services. She is to continue with her HEP. Plan of Care PT Services Indicated No
== END 2025-03-16 14:07 | disposition home or self-care (01) ==
LOC: ANHPT 11:00
PROVIDERS: PCP Physician Assistant; Visit Provider Physician Assistant
DX: M75.21 Bicipital tendinitis, right shoulder (principal); M25.511 Pain in right shoulder
CPT/HCPCS: 97035; 97110; 97140; 97161; 97530

== ENCOUNTER 2025-05-29 10:18 | Outpatient (CLI) | payer OTHER, SELFPAY ==
--- NOTE | ~2025-05-29 | DEXA_ITS ---
Bone Density Report Name: ROSALIA ROONEY Age: 79 Sex: Female Ethnicity: White Date of : 1945 Indication: osteopenia; monitoring treatment; height loss; history of glucocorticoids; asthma or emphysema; Referring Provider: IGNACIA BECERRA Study: Bone densitometry was performed. Exam Date: May 29, 2025 Accession number: [id number] Bone Density: Region BMD T-score Z-score Classification AP Spine(L1-L4) 0.894 -1.4 1.3 Osteopenia Femoral Neck (Left) 0.564 -2.6 -0.3 Osteoporosis Total Hip (Left) 0.719 -1.8 0.2 Osteopenia Femoral Neck (Right) 0.597 -2.3 0.0 Osteopenia Total Hip (Right) 0.751 -1.6 0.5 Osteopenia Total Hip Mean 0.735 -1.7 0.4 Osteopenia World Health Organization criteria for BMD impression classify patients as: Normal (T-score at or above -1.0), Osteopenia (T-score between -1.0 and -2.5), or Osteoporosis (T-score at or below -2.5). 10-year Fracture Risk: FRAX not reported because: Some T-score for Spine Total or Hip Total or Femoral Neck at or below -2.5 Treated for osteoporosis Previous Exams: Region Exam Age BMD T-score BMD Change BMD Change Date g/cm2 vs Baseline vs Previous AP Spine (L1-L4) 05/29/2025 79 0.894 -1.4 0.014 (1.6%)# 0.056 (6.6%)* 02/16/2023 77 0.838 -1.9 -0.042 (-4.7%) -0.021 (-2.4%) 08/10/2020 74 0.859 -1.7 -0.021 (-2.4%) -0.014 (-1.6%) 03/14/2018 72 0.873 -1.6 -0.007 (-0.8%) 0.016 (1.9%) 02/10/2016 70 0.857 -1.7 -0.023 (-2.6%) -0.023 (-2.6%) 09/13/2012 66 0.880 -1.5 Total Hip(Left) 05/29/2025 79 0.719 -1.8 -0.105 (-12.7% -0.015 (-2.1%) 02/16/2023 77 0.734 -1.7 -0.090 (-10.9% -0.012 (-1.6%) 08/10/2020 74 0.747 -1.6 -0.077 (-9.4%) -0.002 (-0.3%) 03/14/2018 72 0.749 -1.6 -0.075 (-9.1%) -0.026 (-3.3%) 02/10/2016 70 0.774 -1.4 -0.050 (-6.0%) -0.050 (-6.0%) 09/13/2012 66 0.824 -1.0 Total Hip(Right) 05/29/2025 79 0.751 -1.6 -0.023 (-2.9%) 0.020 (2.8%) 02/16/2023 77 0.731 -1.7 -0.043 (-5.5%) -0.024 (-3.2%) 08/10/2020 74 0.755 -1.5 -0.019 (-2.4%) -0.025 (-3.2%) 03/14/2018 72 0.780 -1.3 0.006 (0.8%)# -0.005 (-0.6%) 02/10/2016 70 0.785 -1.3 0.011 (1.4%)# 0.011 (1.4%)# 09/13/2012 66 0.774 -1.4 *Denotes significance at 95% confidence level, LSC for AP Spine = 0.022 g/cm2, LSC for Total Hip = 0.027 g/cm2 # Denotes dissimilar scan types or analysis methods Clinical Information Provided by Patient: Has taken Glucocorticoids Is being treated for osteoporosis Has used the following medications: Boniva (i.e. ibandronate), Vitamin D, Calcium Has the following medical conditions: Asthma or Emphysema Patient maximum height was 67 Menopause Age: 54 Drinks caffeinated beverages Onset of menses at age 10 Number of children 3 Impression: The patient has osteoporosis, based on the Left Femoral Neck T-score. The patient has risk factors, including: history of glucocorticoid therapy. No significant bone loss was observed. Discussion: PATIENT UNDER TREATMENT WITH NO SIGNIFICANT BMD LOSS SINCE LAST EXAM. In an untreated patient, BMD typically declines with age. A lack of decline or gain is usually a sign that treatment is efficacious and fracture risk is reduced. It is important to ask patients whether they are taking their medications and to encourage continued and appropriate compliance with their osteoporosis therapies to reduce fracture risk. It is also important to review their risk factors and encourage appropriate calcium and vitamin D intakes, exercise, fall prevention and other lifestyle measures. Follow-Up: Consider a repeat BMD and Vertebral Fracture Assessment (VFA) exam in 2 years or sooner if medically necessary, to reassess this patient's status. Reported by: CAREY on 05/29/2025 10:53:00 AM. Reviewed, dictated and finalized at location A.
--- OUTSIDE RECORDS SUMMARY | 2025-05-29 10:22 | XMS_ITS | Clinical Summary ---
Author Organization [facility] Address [address] [place] [address] Care Team Providers Care Senior Software Architect Name Role Phone Acacia Phan Primary Care Pr ovider Source Comments [facility],non-owned Affiliates and Associated Physician Practices is amultiple site organization consisting of ambulatory clinics and hospital sitesin [place], [place], [place] and [place]. This disclosure is being madepursuant to the Care Everywhere program and may not contain all information available regarding this patient. Last updated 18.[facility] Allergies No known active allergies Medications * Be aware that medications may not be up to date on this document. Alwaysverify current medications with the patient. albuterol HFA (Proventil; Ventolin; Proair) 108 (90 Base) MCG/ACT inhaler Inhale 2 (two) puffs by mouth every 4 hours as needed 3 Active Breo Ellipta 100-25 MCG/ACT inhaler Inhale 1 (one) puff by mouth once daily 3 Active latanoprost (Xalatan) 0.005 % ophthalmic solution Instill 1 (one) drop into both eyes at bedtime 3 Active montelukast (Singulair) 10 MG tablet Take 1 (one) tablet by mouth once daily 3 Active simvastatin (Zocor) 40 MG tablet Take 1 (one) tablet by mouth once daily 2 Active Multiple Vitamins-Minera ls (WOMENS 50+ MULTI VITAMIN PO) Take 1 tablet by mouth once daily Active calcium-vitamin D (Os-Jose F 500 + D) 250-100 MG TABS Take 2 (two) Half Tablet by mouth once daily Active Flaxseed, Linseed, (Flaxseed Oil) 1000 MG Take 1 (one) capsule by mouth once daily Active coenzyme Q10 100 MG capsule Take 100 (one hundred) mg by mouth once daily Active ibandronate (Boniva) 150 MG tablet Take 1 (one) tablet by mouth every 30 days 4 Active diclofenac sodium EC (Voltaren) 75 MG tablet Take 1 (one) tablet by mouth 2 times daily 5 Active methylPREDNISol one (Medrol Dosepak) 4 MG tablet FOLLOW PACKAGE DIRECTIONS 4 Active triamcinolone acetonide (Kenalog) 0.1 % ointmentIndicat ions:Erosive lichen planus of vagina Apply to external vulvar tissues twice daily. 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 Asthma 02/13/2023 02/13/2023 Hyperlipidemia 02/13/2023 02/13/2023 Osteoarthritis of knee 02/13/2023 3 Family History Medical History Relation Name Comments Diabetes - Type 2 Brother CAD (Coronary Artery Disease) Father High Cholesterol Father Cancer - Colon Mother Diabetes - Type 2 Sister Relation Name Status Comments Brother Father Mother Sister Social History Tobacco Use Types Packs/Day Years Used Date Smoking Tobacco: Former Cigarettes Q uit: 2017 Passive Smoke Exposure: Never Smokeless Tobacco: Never Tobacco Cessation:Counseling Given: Not Answered Alcohol Use Standard Drinks/Week Comments Yes 3 (1 standard drink = 0.6 oz pur e alcohol) Comments No Sex and Gender Information Value Date Recorded Sex Assigned at Not on file Legal Sex Female 4:25 AM MANAGER PACU Gender Identity Not on file Sexual Orientation Not on file Last Filed Vital Signs Vital Sign Reading Time Taken Comments Blood Pressure 125/73 12/09/2024 10:25 AM MANAGER PACU Pulse - - Temperature 36 C (96.8 F) 12/09/2024 10:25 AM MANAGER PACU Respiratory Rate - - Oxygen Saturation - - Inhaled Oxygen Concentration - - Weight 66.7 kg (147 lb) 12/09/2024 10:25 AM MANAGER PACU Height 165.1 cm (5' 5) 12/09/2024 10:25 AM MANAGER PACU Body Mass Index 24.46 12/09/2024 10:25 AM MANAGER PACU Plan of Treatment Upcoming Encounters Date Type Department Care Team (Late st Contact Info) Description 09/15/2025 10:30 AM MANAGER PACU Office Visit [facility] - FLANGING OPERATOR [address] [facility] [address] [place] [address] Maribeth [place] MD [address] [facility] [address] [place] [address] Health Maintenance Due Date Last Done Comments BONE DENSITY TESTING 1945 DTAP/TDAP/TD VACCINES (1 - Tdap) 1964 PNEUMOCOCCAL VACCINE 50+ (1 of 2 - PCV) 1964 ZOSTER VACCINE (1 of 2) 1995 Respiratory Syncytial Virus (RSV) Vaccine Pt: or over 60 yrs (1 - 1-dose 75+ series) 2020 COVID-19 VACCINE ( season) 2024 07/07/2022, 01/30/2022, 08/10/2021, Additional history exists DEPRESSION SCREENING 10/15/2024 INFLUENZA VACCINE (#1) 2025 3, 06/30/2022, 07/25/2021, Additional history exists HEPATITIS B VACCINE Aged Out No longe r eligible based on patient's age to complete this topic HIB VACCINE Aged Out No longer eligi ble based on patient's age to complete this topic HPV VACCINE Aged Out No longer eligi ble based on patient's age to complete this topic MENINGOCOCCAL (Group B) VACCINE SHARED DECISION-MAKING Aged Out No longer eligible based on patient's age to complete this topic MENINGOCOCCAL GROUPS A/C/Y/W VACCINE Aged Out No longer eligible based on patient's age to complete this topic Insurance CIGNA CIGNA Care Teams Senior Software Architect Relationship Specialty Start Date End Date Acacia Phan PA [address] [place] [id number] PCP - General 12/28/22
--- OUTSIDE RECORDS SUMMARY | 2025-05-29 10:22 | XMS_ITS | Encounter Summary ---
Author Organization [facility] Address [address] [place] [address] Care Team Providers Care Rn Critical Care Name Role Phone Acacia Phan Primary Care Pr ovider Reason for Visit * Reason Onset Date Comments Referral Request 12/27/2022 Encounter Details Date Type Department Care Team (Late st Contact Info) Description 12/27/2022 Telephone [facility] [address] [facility] [address] [place] [address] Maribeth [facility] MD [address] [facility] [address] [place] [address] Referral Request Social History Tobacco Use Types Packs/Day Years Used Date Smoking Tobacco: Never Assessed Comments Unknown Sex and Gender Information Value Date Recorded Sex Assigned at Not on file Legal Sex Female 4:25 AM ACID BLOWER Gender Identity Not on file Sexual Orientation Not on file documented as of this encounter Miscellaneous Notes * Telephone Encounter - Jordan Quinn - 12/27/2022 9:05 AM CDT Current Provider name:Citlaly Burgos Reason for call: Marybeth would like to verify that the patient's referral has been received. Patient Call Back number: [phone] documented in this encounter Plan of Treatment Upcoming Encounters Date Type Department Care Team (Late st Contact Info) Description 09/15/2025 10:30 AM ACID BLOWER Office Visit [facility] - COMMUNICATION EQUIPMENT REPAIRER [address] [facility] [address] [place] [address] Maribeth [facility] MD [address] [facility] [address] [place] [address] documented as of this encounter Visit Diagnoses Not on filedocumented in this encounter Care Teams Rn Critical Care Relationship Specialty Start Date End Date Acacia Phan PA [address] [place] [address] PCP - General 12/28/22 documented as of this encounter
--- OUTSIDE RECORDS SUMMARY | 2025-05-29 10:22 | XMS_ITS | Encounter Summary ---
Author Organization [facility] Address [address] [facility] [place] [address] Care Team Providers Care Archeology Professor Name Role Phone Acacia Phan Primary Care Pr ovider Encounter Details Date Type Department Care Team (Late st Contact Info) Description 08/20/2019 Lab Requisition [facility] [address] [facility], [place] [phone] Jo-Ann Charles DO [address] [facility] 3 [place] [address] Social History Tobacco Use Types Packs/Day Years Used Date Smoking Tobacco: Never Assessed Comments Unknown Sex and Gender Information Value Date Recorded Sex Assigned at Not on file Legal Sex Female 4:25 AM SINTERING PLANT SUPERVISOR Gender Identity Not on file Sexual Orientation Not on file documented as of this encounter Plan of Treatment Upcoming Encounters Date Type Department Care Team (Late st Contact Info) Description 09/15/2025 10:30 AM SINTERING PLANT SUPERVISOR Office Visit [facility] - CLOTH WASHER [address], [facility] [address] [place] [address] Maribeth Madison MD [address] [facility] [address] [place] [address] documented as of this encounter Procedures Procedure Name Priority Date/Time Associated Diagnosis Comments DERMATOPATH TECHNICAL REPORT Routine 08/19/2019 12:00 AM SINTERING PLANT SUPERVISOR documented in this encounter Results * DERMATOPATH TECHNICAL REPORT (08/19/2019 12:00 AM SINTERING PLANT SUPERVISOR) Case Report Dermatopathology Report Case: [id number] Authorizing Provider: Jo-Ann Charles DO Collected: 08/19/2019 12:00 AM Ordering Location: [facility] DermPath Lab Received: 08/20/2019 11:26 AM Pathologist: Marlena Waters MD Specimens: A) - Skin, left FA B) - Skin, left thigh C) - Skin, left calf 2:53 PM [facility] DERMATOPATHOLOGY LABORATORY Clinical History A-C: R/O NMSC. 2:53 PM [facility] DERMATOPATHOLOGY LABORATORY Gross Description Specimen A: Received is one formalin filled container labeled with the patient's name and designated left FA. The specimen consists of a shave measuring [id number]. Jar 0. Specimen B: Received is one formalin filled container labeled with the patient's name and designated left thigh. The specimen consists of a shave measuring 4p5s2sp. Jar 0+. Specimen C: Received is one formalin filled container labeled with the patient's name and designated left calf. The specimen consists of a shave measuring [id number]. Jar 0. [facility] Dermatopathology Laboratory performed the technical component only. 2:53 PM [facility] DERMATOPATHOLOGY LABORATORY Embedded Images 2:53 PM [facility] DERMATOPATHOLOGY LABORATORY DISCLAIMER An external and internal positive and negative controls are appropriate for the histochemical, immunohistochemical and immunofluorescence stain(s) in this case (if any), except where stated explicitly. The performance characteristics of the stain(s) cited in this report were developed and its performance characteristic determined by the Dermatopathology Laboratory at [facility], directed by Dr. Chica Buck. These tests need not be, and therefore are not, approved by the [place] Food and Drug Administration. The tests are used for clinical purposes. 2:53 PM [facility] DERMATOPATHOLOGY LABORATORY at [address] SINTERING PLANT SUPERVISOR Pathology/Cytology TISSUE SPECIMEN FROM SKIN / Unknown 08/19/2019 08/20/2019 11:26 AM SINTERING PLANT SUPERVISOR Miscellaneous samples (specimen) TISSUE SPECIMEN FROM SKIN / Unknown 08/19/2019 08/20/2019 11:26 AM SINTERING PLANT SUPERVISOR Miscellaneous samples (specimen) TISSUE SPECIMEN FROM SKIN / Unknown 08/19/2019 08/20/2019 11:26 AM SINTERING PLANT SUPERVISOR us Jo-Ann Charles DO LAB - PATHOLOGY/CYTOLOGY ORDERABLES Final Result DERMATOPATHOLOGY LABORATORY [facility] - Department of Dermatology [address] [place] [address] [address] [phone] documented in this encounter Visit Diagnoses Not on filedocumented in this encounter Care Teams Archeology Professor Relationship Specialty Start Date End Date Acacia Phan PA [address] [place] [address] PCP - General 12/28/22 documented as of this encounter
--- OUTSIDE RECORDS SUMMARY | 2025-05-29 10:22 | XMS_ITS | Clinical Summary ---
Author Organization [facility] [place] [address] [place] Address [address] [place] [phone] Care Team Providers Care Md Physician Dermatologist Name Role Phone DustinDesi meyerdavida MORA Primary Care Pr ovider Allergies No known active allergies Medications albuterol HFA (PROVENTIL HFA,VENTOLIN HFA,PROAIR HFA) 90 mcg/actuation inhaler Inhale 2 puffs every 4 (four) hours as needed [address] (VOLTAREN) 75 mg EC tablet Take 1 tablet (75 mg total) by mouth 2 (two) times a day Active flaxseed oiL 1,000 mg capsule Take 1 capsule (1,000 mg total) by mouth daily Active Breo Ellipta 100-25 mcg/dose diskus inhaler Inhale 1 puff daily Active latanoprost (XALATAN) 0.005 % ophthalmic solution Administer 1 drop into both eyes nightly Active montelukast (SINGULAIR) 10 mg tablet Take 1 tablet (10 mg total) by mouth daily Active simvastatin (ZOCOR) 40 mg tablet Take 1 tablet (40 mg total) by mouth daily Active coenzyme T82-xougvrh E 100-5 mg-unit capsule Take 100 mg by mouth daily Active ibandronate (BONIVA) 150 mg tablet Take 1 tablet (150 mg total) by mouth every 30 (thirty) days 4 Active triamcinolone (KENALOG) 0.025 % cream Apply topically 2 (two) times a day Active Active Problems No known active problems Encounters Date Type Department Care Team Description 05/25/2025 10:00 AM CDT Office Visit [facility] Orthopedic and Sports Medicine [address] [place] [phone] Corby Talamantes PA Biceps tendinitis of right upper extremity (Primary Dx) from Last 3 Months Surgical History Surgery Date Site/Laterality Comments CHOLECYSTECTOMY HAND SURGERY KNEE ARTHROSCOPY TEAR DUCT SURGERY Medical History Medical History Date Comments Asthma Osteoporosis Hypercholesteremia Family History Medical History Relation Name Comments Cancer Father Heart disease Father Colon cancer Mother Heart disease Mother Relation Name Status Comments Father Mother Social History Tobacco Use Types Packs/Day Years Used Date Smoking Tobacco: Former Cigarettes Smokeless Tobacco: Never Tobacco Cessation:Counseling Given: Not Answered AUDIT-C Answer Date Recorded Q1: How often do you have a drink containing alc ohol? Monthly or less 05/25/2025 Average Number of Drinks Not on file 025 Frequency of Binge Drinking Not on file 05/15 Comments Unknown Sex and Gender Information Value Date Recorded Sex Assigned at Not on file Legal Sex Female 11:16 AM CAN STACKER Gender Identity Not on file Sexual Orientation Not on file Obstetrics History Last Filed Vital Signs Vital Sign Reading Time Taken Comments Blood Pressure 120/61 05/25/2025 10:03 AM CDT Pulse 58 05/25/2025 10:03 AM CDT Temperature - - Respiratory Rate - - Oxygen Saturation - - Inhaled Oxygen Concentration - - Weight 64.9 kg (143 lb) 05/25/2025 10:03 AM CDT Height 165.1 cm (5' 5) 05/25/2025 10:03 AM CDT Body Mass Index 23.8 05/25/2025 10:03 AM CDT Plan of Treatment Health Maintenance Due Date Last Done Comments Depression Screening 1945 Fall Risk Assessment 1945 Hepatitis C Screening 1945 Osteoporosis Screening-Bone Density Scan 1945 DTaP/Tdap/Td Vaccine (1 - Tdap) 1956 Hepatitis B Screening 1963 Zoster Vaccine (1 of 2) 1995 Well Visit 65+ 2010 Covid-19 Vaccine (9 - Modern a risk season) 2024 06/25/2024, 01/01/2024, 07/09/2023, Additional history exists Influenza Vaccine (#1) 2025 , 07/23/2023, 06/30/2022, Additional history exists Pneumococcal vaccine 65+ Completed 024, 09/02/2019, 08/22/2018, Additional history exists Insurance [email or web address] OPEN ACCESS Care Teams Md Physician Dermatologist Relationship Specialty Start Date End Date Acacia Cano PA [address] [place] [address] PCP - General Physician Wildlife Conservation Officer 05/25/25
== END 2025-05-29 10:19 | disposition home or self-care (01) ==
LOC: ANHIMG 10:19
PROVIDERS: PCP Physician Assistant; Visit Provider Nurse Practitioner Family
DX: M81.0 Age-related osteoporosis without current pathological fracture (principal); M85.88 Other specified disorders of bone density and structure, other site; M85.852 Other specified disorders of bone density and structure, left thigh; M85.851 Other specified disorders of bone density and structure, right thigh
CPT/HCPCS: 77080

== ENCOUNTER 2025-06-16 07:57 | Outpatient (CLI) | payer OTHER, SELFPAY ==
--- NOTE | ~2025-06-16 | MM_ITS ---
EXAMINATION: MM screening milton BI w karley HISTORY: Screening mammogram TECHNIQUE: Craniocaudal and mediolateral oblique 3-D tomosynthesis images were obtained and synthetic 2-D images were generated. CAD analysis was submitted and interpreted. COMPARISON: Mammograms from 05/30/2024, 02/16/2023 BREAST PARENCHYMAL COMPOSITION: There are scattered areas of fibroglandular density. FINDINGS: RIGHT BREAST: There is no evidence of suspicious mass, calcification, or architectural distortion to suggest malignancy. There has been no significant interval change. LEFT BREAST: No suspicious calcifications. There is a 6 mm asymmetry with questionable architectural distortion in the upper left breast, middle depth, seen best in the left 3D MLO projection. IMPRESSION: 1. New 6 mm asymmetry in the upper left breast. This study is incomplete. A diagnostic left breast mammogram and a diagnostic left breast ultrasound is recommended. 2. No mammographic evidence for malignancy in the right breast. BI-RADS Category 0: Incomplete: Needs additional imaging evaluation. Reviewed, dictated and finalized at location Q. IMPRESSION: 1. New 6 mm asymmetry in the upper left breast. This study is incomplete. A jossy gnostic left breast mammogram and a diagnostic left breast ultrasound is recomm ended. 2. No mammographic evidence for malignancy in the right breast. BI-RADS Category 0: Incomplete: Needs additional imaging evaluation.
--- OUTSIDE RECORDS SUMMARY | 2025-06-16 08:02 | XMS_ITS | Encounter Summary ---
Author Organization [facility] Health Address [address] [facility] [place] [address] Care Team Providers Care Rocket Test Fire Worker Name Role Phone Acacia Phan Primary Care Pr ovider Reason for Visit * Reason Onset Date Comments Referral Request 12/27/2022 Encounter Details Date Type Department Care Team (Late st Contact Info) Description 12/27/2022 Telephone [facility] [address] [facility] [address] [place] [address] Maribeth Madison MD [address] [facility] [address] [place] [address] Referral Request Social History Tobacco Use Types Packs/Day Years Used Date Smoking Tobacco: Never Assessed Comments Unknown Sex and Gender Information Value Date Recorded Sex Assigned at Not on file Legal Sex Female 4:25 AM SEWER BRICKLAYER Gender Identity Not on file Sexual Orientation Not on file documented as of this encounter Miscellaneous Notes * Telephone Encounter - Jordan Quinn - 12/27/2022 9:05 AM CDT Current Provider name:Citlaly Burgos Reason for call: Marybeth would like to verify that the patient's referral has been received. Patient Call Back number: [phone] documented in this encounter Plan of Treatment Upcoming Encounters Date Type Department Care Team (Late st Contact Info) Description 09/15/2025 10:30 AM SEWER BRICKLAYER Office Visit [facility] - SOFTWARE VALIDATION ENGINEER [address], [facility] [address] [place] [address] Maribeth Madison MD [address] [facility] [address] [place] [address] documented as of this encounter Visit Diagnoses Not on filedocumented in this encounter Care Teams Rocket Test Fire Worker Relationship Specialty Start Date End Date Acacia Phan PA [address] [place] [address] PCP - General 12/28/22 documented as of this encounter
--- OUTSIDE RECORDS SUMMARY | 2025-06-16 08:02 | XMS_ITS | Clinical Summary ---
Author Organization [facility] [address] Address [address] [place] [phone] Care Team Providers Care Business Development Professional Name Role Phone DustinDesi meyerdavida MORA Primary [...] mg total) by mouth daily Active coenzyme Q46-ozkeemo E 100-5 mg-unit capsule Take 100 mg by mouth daily Active ibandronate (BONIVA) 150 mg tablet Take 1 tablet (150 mg total) by mouth every 30 (thirty) days 4 Active triamcinolone (KENALOG) 0.025 % cream Apply topically 2 (two) times a day Active Active Problems No known active problems Encounters Date Type Department Care Team Description 05/25/2025 10:00 AM CDT Office Visit [facility] Orthopedic and Sports Medicine [address] [place] [phone] Corby Talamantes PA Biceps tendinitis of right [...] on file Legal Sex Female 11:16 AM 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
--- OUTSIDE RECORDS SUMMARY | 2025-06-16 08:02 | XMS_ITS | Encounter Summary ---
Author Organization [facility] Address [address] [place] [address] Care Team Providers Care Post Acute Care Nurse Name Role Phone Acacia Phan Primary Care Pr ovider Encounter Details Date Type Department Care Team (Late st Contact Info) Description 08/20/2019 Lab Requisition [facility] [address] [facility], [place] [phone] Jo-Ann Charles DO [address] [facility] 3 [place] [address] Social History Tobacco Use Types Packs/Day Years Used Date Smoking Tobacco: Never Assessed Comments Unknown Sex and Gender Information Value Date Recorded Sex Assigned at Not on file Legal Sex Female 4:25 AM REGISTERED NURSE PRACTITIONER Gender Identity Not on file Sexual Orientation Not on file documented as of this encounter Plan of Treatment Upcoming Encounters Date Type Department Care Team (Late st Contact Info) Description 09/15/2025 10:30 AM REGISTERED NURSE PRACTITIONER Office Visit [facility] - DUMP GRADER [address], [facility] [address] [place] [address] Maribeth Madison MD [address] [facility] [address] [place] [address] documented as of this encounter Procedures Procedure Name Priority Date/Time Associated Diagnosis Comments DERMATOPATH TECHNICAL REPORT Routine 08/19/2019 12:00 AM REGISTERED NURSE PRACTITIONER documented in this encounter Results * DERMATOPATH TECHNICAL REPORT (08/19/2019 12:00 AM REGISTERED NURSE PRACTITIONER) Case Report Dermatopathology Report Case: [id number] Authorizing Provider: Jo-Ann Charles DO Collected: 08/19/2019 12:00 AM Ordering Location: [facility] DermPath Lab Received: 08/20/2019 11:26 AM Pathologist: Marlena Waters MD Specimens: A) - Skin, left FA B) - Skin, left thigh C) - Skin, left calf 2:53 PM [facility] DERMATOPATHOLOGY LABORATORY Clinical History A-C: R/O NMSC. 2:53 PM [facility] DERMATOPATHOLOGY LABORATORY Gross Description Specimen A: Received is one formalin filled container labeled with the patient's name and designated left FA. The specimen consists of a shave measuring [id number]. Jar 0. Specimen B: Received is one formalin filled container labeled with the patient's name and designated left thigh. The specimen consists of a shave measuring [id number]. Jar 0+. Specimen C: Received is one formalin filled container labeled with the patient's name and designated left calf. The specimen consists of a shave measuring [id number]. Jar 0. [facility] Dermatopathology Laboratory performed the technical component only. 2:53 PM [facility] DERMATOPATHOLOGY LABORATORY Embedded Images 2:53 PM [facility] DERMATOPATHOLOGY LABORATORY DISCLAIMER An external and internal positive and negative controls are appropriate for the histochemical, immunohistochemical and immunofluorescence stain(s) in this case (if any), except where stated explicitly. The performance characteristics of the stain(s) cited in this report were developed and its performance characteristic determined by the Dermatopathology Laboratory at [facility], directed by Dr. Chica Buck. These tests need not be, and therefore are not, approved by the [place] Food and Drug Administration. The tests are used for clinical purposes. 2:53 PM [facility] DERMATOPATHOLOGY LABORATORY at 1453 REGISTERED NURSE PRACTITIONER Pathology/Cytology TISSUE SPECIMEN FROM SKIN / Unknown 08/19/2019 08/20/2019 11:26 AM REGISTERED NURSE PRACTITIONER Miscellaneous samples (specimen) TISSUE SPECIMEN FROM SKIN / Unknown 08/19/2019 08/20/2019 11:26 AM REGISTERED NURSE PRACTITIONER Miscellaneous samples (specimen) TISSUE SPECIMEN FROM SKIN / Unknown 08/19/2019 08/20/2019 11:26 AM REGISTERED NURSE PRACTITIONER us Jo-Ann Charles DO LAB - PATHOLOGY/CYTOLOGY ORDERABLES Final Result DERMATOPATHOLOGY LABORATORY [facility] - Department of Dermatology [address] [place] [address] [address] [phone] documented in this encounter Visit Diagnoses Not on filedocumented in this encounter Care Teams Post Acute Care Nurse Relationship Specialty Start Date End Date Acacia Phan PA [address] [place] [address] PCP - General 12/28/22 documented as of this encounter
--- OUTSIDE RECORDS SUMMARY | 2025-06-16 08:02 | XMS_ITS | Clinical Summary ---
Author Organization [facility] Address [address] [place] [place] [address] Care Team Providers Care Internal Controls Analyst Name Role Phone Acacia Phan Primary Care Pr ovider Source Comments [facility],non-owned Affiliates and Associated Physician Practices is amultiple site organization consisting of ambulatory clinics and hospital sitesin [place], [place], [place] and [place]. This disclosure is being madepursuant to the Care Everywhere program and may not contain all information available regarding this patient. Last updated 18.[facility] Allergies No known active allergies Medications * [...] on file Legal Sex Female 4:25 AM OIL EXPERT Gender Identity Not on file Sexual Orientation Not on file Last Filed Vital Signs Vital Sign Reading Time Taken Comments Blood Pressure 125/73 12/09/2024 10:25 AM OIL EXPERT Pulse - - Temperature 36 C (96.8 F) 12/09/2024 10:25 AM OIL EXPERT Respiratory Rate - - Oxygen Saturation - - Inhaled Oxygen Concentration - - Weight 66.7 kg (147 lb) 12/09/2024 10:25 AM OIL EXPERT Height 165.1 cm (5' 5) 12/09/2024 10:25 AM OIL EXPERT Body Mass Index 24.46 12/09/2024 10:25 AM OIL EXPERT Plan of Treatment Upcoming Encounters Date Type Department Care Team (Late st Contact Info) Description 09/15/2025 10:30 AM OIL EXPERT Office Visit [facility] - STAFF MIDWIFE [address], [facility] [address] [place] [address] Maribeth Madison MD [address] [facility] [address] [place] [address] Health Maintenance Due Date Last Done Comments BONE DENSITY TESTING 1945 DTAP/TDAP/TD VACCINES (1 - Tdap) 1964 PNEUMOCOCCAL VACCINE 50+ (1 of 2 - PCV) 1964 ZOSTER VACCINE (1 of 2) 1995 Respiratory Syncytial Virus (RSV) Vaccine Pt: or over 60 yrs (1 - 1-dose 75+ series) 2020 DEPRESSION SCREENING 10/15/2024 COVID-19 VACCINE ( season) 2025 07/07/2022, 01/30/2022, 08/10/2021, Additional history exists INFLUENZA VACCINE (#1) 2025 3, 06/30/2022, 07/25/2021, [...] this topic Insurance CIGNA CIGNA Care Teams Internal Controls Analyst Relationship Specialty Start Date End Date Acacia Phan PA [address] [place] [id number] PCP - General 12/28/22
== END 2025-06-16 07:58 | disposition home or self-care (01) ==
LOC: ANHFOHIMG 07:59
PROVIDERS: PCP Physician Assistant; Visit Provider Obstetrics & Gynecology
DX: Z12.31 Encounter for screening mammogram for malignant neoplasm of breast (principal); R92.8 Other abnormal and inconclusive findings on diagnostic imaging of breast
CPT/HCPCS: 77063; 77067

== ENCOUNTER 2025-07-13 12:55 | Outpatient (CLI) | payer OTHER, SELFPAY ==
--- NOTE | ~2025-07-13 | MMUS_ITS ---
EXAMINATION: MM diagnostic milton LT w karley, US breast LT complete HISTORY: Follow-up new left breast asymmetry TECHNIQUE: Additional 3-D tomosynthesis images of the left breast were performed and synthetic 2-D images were generated. CAD analysis was submitted and interpreted. High resolution complete left breast ultrasound was performed. COMPARISON: Comparison to multiple prior studies sequentially, with oldest reviewed study dated 06/19/2019. BREAST PARENCHYMAL COMPOSITION: Not dense: There are scattered areas of fibroglandular density. FINDINGS: MAMMOGRAPHIC FINDINGS: Focal left breast asymmetry compresses with spot views. No suspicious masses, calcifications or architectural distortion in the left breast to suggest malignancy. ULTRASOUND: Complete US of all 4 quadrants of the left breast/s and retroareolar region was reviewed. Normal heterogeneous echotexture without focal solid or cystic mass. IMPRESSION: 1. No evidence for malignancy in the left breast. 2. Routine yearly screening mammogram and regular clinical breast examination are recommended. BI-RADS Category 1: Negative Reviewed, dictated and finalized at location B. IMPRESSION: 1. No evidence for malignancy in the left breast. 2. Routine yearly screening mammogram and regular clinical breast examination a re recommended. BI-RADS Category 1: Negative
--- OUTSIDE RECORDS SUMMARY | 2025-07-13 09:15 | XMS_ITS | Encounter Summary ---
Author Organization [facility] Healthcare Address [address] [place] [address] Care Team Providers Care Detailer School Photographs Name Role Phone Acacia Caon Primary Care Pr ovider Reason for Visit * Reason Comments Pain Est patient here for right shoulder pain, Patient reports a different pain similar to frozen shoulder.Pain: 0/10 Encounter Details Date Type Department Care Team (Late st Contact Info) Description 07/13/2025 9:15 AM CDT Office Visit [facility] Orthopedic and Sports Medicine [address] [place] [phone] Corby Talamantes PA [address] [place] [address] [address] Adhesive capsulitis of right shoulder (Primary Dx); Biceps tendinitis of right upper extremity; Right shoulder pain, unspecified chronicity Social History Tobacco Use Types Packs/Day Years [...] on file Legal Sex Female 11:16 AM CALLIOPE PLAYER Gender Identity Not on file Sexual Orientation Not on file documented as of this encounter Last Filed Vital Signs Vital Sign Reading Time Taken Comments Blood Pressure 120/72 07/13/2025 9:19 AM CDT Pulse 88 07/13/2025 9:19 AM CDT Temperature - - Respiratory Rate - - Oxygen Saturation - - Inhaled Oxygen Concentration - - Weight 63.8 kg (140 lb 9.6 oz) 07/13/2025 9:19 A M CDT Height 165.1 cm (5' 5) 07/13/2025 9:19 AM CDT Body Mass Index 23.4 07/13/2025 9:19 AM CDT documented in this encounter Progress Notes * Corby Talamantes PA - 07/13/2025 9:15 AM CDT Images from the original note were not included. FOLLOW UP VISIT This patient has verbally consented to recording this visit in order to utilize AI technology in generating this note. Subjective CHIEF COMPLAINT She had concerns including Pain of the Right Shoulder (Est patient here for right shoulder pain, Patient reports a different pain similar to frozen shoulder./Pain: 0/10). HISTORY OF PRESENT ILLNESS History of Present Illness Liang Quigley is a 79 year old female with a history of frozen shoulder who presents with shoulder pain and stiffness. She experiences significant shoulder pain and stiffness, particularly in the mornings, described as'horribly painful', impacting daily activities such as putting on a bra. The symptoms are reminiscent of a previous episode of frozen shoulder she experienced three to four years ago. The pain is exacerbated by certain movements, especially when attempting to move her arm backward. She has stopped some exercises due to increased pain, specifically those involving weights and extensive backward arm movement. In the past, she underwent physical therapy for her frozen shoulder, which she found beneficial. She did not receive any injections during her previous treatment. She recalls attending therapy sessions at a facility in [place], associated with [facility]. She reports mild pain in certain areas of the shoulder but no severe pain in others. Pain Assessment Pain Assessment: 0-10 Pain Score: 0 - No pain Pain Location: Shoulder Pain Orientation: Right MEDICATIONS She has a current medication list which includes the following prescription(s): albuterol hfa, breoellipta, coenzyme [id number] e, diclofenac dr, flaxseed oil, ibandronate, latanoprost, montelukast, simvastatin, and triamcinolone. REVIEW OF SYSTEMS All appropriate ROS addressed in the HPI Objective PHYSICAL EXAM BP 120/72 Pulse 88 Ht 165.1 cm (5' 5) Wt 63.8 kg (140 lb 9.6 oz) BMI 23.40 kg/m?? Right shoulder Inspection The patient has normal inspection of the right shoulder. Palpation Tenderness is present. The patient has tenderness in the anterior shoulder and posterior shoulder area(s). Range of motion The patient has reduced range of motion of the right shoulder. The patient has pain with range of motion of the right shoulder. Active forward flexion: 140 degrees. Active internal rotation at 0 degrees: L5 degrees. Active internal rotation at 90 degrees 30 degrees. Active external rotation at 0 degrees: 60 degrees. Active external rotation at 90 degrees 50 degrees. Active abduction: 130 degrees. Strength The patient has 5/5 strength throughout the right shoulder. Supraspinatus: painful Neurovascular The patient has normal vascular on the right side of her body. She has normal sensation on the right side of her body. REVIEW OF X-RAYS/STUDIES/LABS Assessment/Plan Liang was seen today for pain. Diagnoses and all orders for this visit: Adhesive capsulitis of right shoulder Biceps tendinitis of right upper extremity Right shoulder pain, unspecified chronicity Procedures PLAN Assessment & Plan Right shoulder adhesive capsulitis with associated pain Right shoulder adhesive capsulitis with mild stiffness and pain, limiting range of motion. Previousfrozen shoulder treated with therapy. Discussed pathophysiology and importance of early intervention. - Initiate physical therapy at [facility] focusing on stretching. - Advise on home exercises: towel stretches, broomstick exercises, wall crawls. - Avoid painful exercises, especially with weights. - Consider hydrodilation if condition progresses. - Consider injection for pain management if therapy intolerable. - Reassess in six weeks to evaluate progress. All questions were addressed today and the patient was instructed to call the office with any questions or concerns. MORGAN Almodovar documented in this encounter Plan of Treatment Not on file documented as of this encounter Visit Diagnoses Diagnosis Adhesive capsulitis of right shoulder- Primary Biceps tendinitis of right upper extremity Right shoulder pain, unspecified chronicity documented in this encounter Care Teams Detailer School Photographs Relationship Specialty Start Date End Date Acacia Cano PA [address] [place] [address] PCP - General Physician Carbide Tool Die Maker 05/25/25 documented as of this encounter
--- OUTSIDE RECORDS SUMMARY | 2025-07-13 13:04 | XMS_ITS | Encounter Summary ---
Author Organization [facility] Address [address] [facility] [place] [address] Care Team Providers Care Pressurizer Name Role Phone Acacia Phan Primary Care Pr ovider Encounter Details Date Type Department Care Team (Late st Contact Info) Description 08/20/2019 Lab Requisition [facility] [address] [facility] [place] [phone] Jo-Ann Charles DO [address] [facility] [address] [place] [address] Social History Tobacco Use Types Packs/Day Years Used Date Smoking Tobacco: Never Assessed Comments Unknown Sex and Gender Information Value Date Recorded Sex Assigned at Not on file Legal Sex Female 4:25 AM SOUND INSTALLATION WORKER Gender Identity Not on file Sexual Orientation Not on file documented as of this encounter Plan of Treatment Upcoming Encounters Date Type Department Care Team (Late st Contact Info) Description 09/15/2025 10:30 AM SOUND INSTALLATION WORKER Office Visit [facility] - ELECTRONIC ASSEMBLER [address] [facility] [address] [place] [address] Maribeth Madison MD [address] [facility] [address] [place] [address] documented as of this encounter Procedures Procedure Name Priority Date/Time Associated Diagnosis Comments DERMATOPATH TECHNICAL REPORT Routine 08/19/2019 12:00 AM SOUND INSTALLATION WORKER documented in this encounter Results * DERMATOPATH TECHNICAL REPORT (08/19/2019 12:00 AM SOUND INSTALLATION WORKER) Case Report Dermatopathology Report Case: [id number] Authorizing Provider: Jo-Ann Charles DO Collected: 08/19/2019 12:00 AM Ordering Location: [facility] Lab Received: 08/20/2019 11:26 AM Pathologist: Marlena Waters MD Specimens: A) - Skin, left FA B) - Skin, left thigh C) - Skin, left calf 2:53 PM [facility] DERMATOPATHOLOGY LABORATORY Clinical History A-C: R/O NMSC. 2:53 PM [facility] DERMATOPATHOLOGY LABORATORY Gross Description Specimen A: Received is one formalin filled container labeled with the patient's name and designated left FA. The specimen consists of a shave measuring [id number]. Jar 0. Specimen B: Received is one formalin filled container labeled with the patient's name and designated left thigh. The specimen consists of a shave measuring [id number]. Jar 0+. Specimen C: Received is one formalin filled container labeled with the patient's name and designated left calf. The specimen consists of a shave measuring [id number]. Jar 0. [facility] Dermatopathology Laboratory performed the technical component only. 2:53 PM [facility] DERMATOPATHOLOGY LABORATORY Embedded Images 2:53 PM [facility] DERMATOPATHOLOGY LABORATORY DISCLAIMER An external and internal positive and negative controls are appropriate for the histochemical, immunohistochemical and immunofluorescence stain(s) in this case (if any), except where stated explicitly. The performance characteristics of the stain(s) cited in this report were developed and its performance characteristic determined by the Dermatopathology Laboratory at [facility], directed by Dr. Chica Buck. These tests need not be, and therefore are not, approved by the [place] Food and Drug Administration. The tests are used for clinical purposes. 2:53 PM [facility] DERMATOPATHOLOGY LABORATORY at [address] SOUND INSTALLATION WORKER Pathology/Cytology TISSUE SPECIMEN FROM SKIN / Unknown 08/19/2019 08/20/2019 11:26 AM SOUND INSTALLATION WORKER Miscellaneous samples (specimen) TISSUE SPECIMEN FROM SKIN / Unknown 08/19/2019 08/20/2019 11:26 AM SOUND INSTALLATION WORKER Miscellaneous samples (specimen) TISSUE SPECIMEN FROM SKIN / Unknown 08/19/2019 08/20/2019 11:26 AM SOUND INSTALLATION WORKER us Jo-Ann Charles DO LAB - PATHOLOGY/CYTOLOGY ORDERABLES Final Result DERMATOPATHOLOGY LABORATORY [facility] - Department of Dermatology [address] [place] [address] [address] [phone] documented in this encounter Visit Diagnoses Not on filedocumented in this encounter Care Teams Pressurizer Relationship Specialty Start Date End Date Acacia Phan PA [address] [place] [phone] PCP - General 12/28/22 documented as of this encounter
--- OUTSIDE RECORDS SUMMARY | 2025-07-13 13:04 | XMS_ITS | Clinical Summary ---
Author Organization [facility] [address] Address [address] [place] [phone] Care Team Providers Care Soaking Room Operator Name Role Phone DustinAcacia meyer Radha MORA Primary Care Pr ovider Allergies No [...] mg total) by mouth daily Active coenzyme [id number] E 100-5 mg-unit capsule Take 100 mg by mouth daily Active ibandronate (BONIVA) 150 mg tablet Take 1 tablet (150 mg total) by mouth every 30 (thirty) days 4 Active triamcinolone (KENALOG) 0.025 % cream Apply topically 2 (two) times a day Active Active Problems No known active problems Encounters Date Type Department Care Team Description 07/13/2025 9:15 AM CDT Office Visit [facility] Medical Group Orthopedic and Sports Medicine [address] [place] [phone] Corby Talamantes PA Adhesive capsulitis of right shoulder (Primary Dx); Biceps tendinitis of right upper extremity; Right shoulder pain, unspecified chronicity 05/25/2025 10:00 AM CDT Office Visit [facility] Medical Group Orthopedic and Sports Medicine [address] [place] [phone] Corby Talamantes PA Biceps tendinitis of right [...] on file Legal Sex Female 11:16 AM BRAND SPECIALIST Gender Identity Not on file Sexual Orientation [...] Mass Index 23.4 07/13/2025 9:19 AM CDT Plan of Treatment Health Maintenance Due Date Last Done Comments Depression Screening 1945 Fall Risk Assessment 1945 Hepatitis C Screening 1945 Osteoporosis Screening-Bone Density Scan 1945 Hepatitis B Screening 1963 Zoster Vaccine (1 of 2) 1995 Well Visit 65+ 2010 DTaP/Tdap/Td Vaccine (1 - Tdap) 03/11/2015 5 Covid-19 Vaccine (9 - Modern a risk season) 2025 06/25/2024, 01/01/2024, 07/09/2023, Additional history exists Influenza Vaccine (#1) 2025 4, 07/23/2023, 06/30/2022, Additional history exists Pneumococcal vaccine 65+ Completed 024, 09/02/2019, 08/22/2018, Additional history exists Insurance [facility] Care Teams Soaking Room Operator Relationship Specialty Start Date End Date Acacia Cano PA [address] [place], [place] [phone] PCP - General Physician Grounds Restoration Specialist 05/25/25
--- OUTSIDE RECORDS SUMMARY | 2025-07-13 13:04 | XMS_ITS | Clinical Summary ---
Author Organization [facility] Address [address] [facility] [place] [address] Care Team Providers Care Special Inspector Name Role Phone Acacia Phan Primary Care Pr ovider Source Comments [facility],non-owned Affiliates and Associated Physician Practices is amultiple site organization consisting of ambulatory clinics and hospital sitesin [place], [place], [place] and [place]. This disclosure is being madepursuant to the Care Everywhere program and may not contain all information available regarding this patient. Last updated 18.[facility] Allergies No known active allergies Medications * [...] on file Legal Sex Female 4:25 AM ELECTRONIC TESTER Gender Identity Not on file Sexual Orientation Not on file Last Filed Vital Signs Vital Sign Reading Time Taken Comments Blood Pressure 125/73 12/09/2024 10:25 AM ELECTRONIC TESTER Pulse - - Temperature 36 C (96.8 F) 12/09/2024 10:25 AM ELECTRONIC TESTER Respiratory Rate - - Oxygen Saturation - - Inhaled Oxygen Concentration - - Weight 66.7 kg (147 lb) 12/09/2024 10:25 AM ELECTRONIC TESTER Height 165.1 cm (5' 5) 12/09/2024 10:25 AM ELECTRONIC TESTER Body Mass Index 24.46 12/09/2024 10:25 AM ELECTRONIC TESTER Plan of Treatment Upcoming Encounters Date Type Department Care Team (Late st Contact Info) Description 09/15/2025 10:30 AM ELECTRONIC TESTER Office Visit [facility] - DIABETES NURSE [address], [facility] [address] [place] [address] Maribeth Madison MD [address] [facility] [address] [place] [address] Health Maintenance Due Date Last [...] this topic Insurance CIGNA CIGNA Care Teams Special Inspector Relationship Specialty Start Date End Date Acacia Phan PA [address] [place] [id number] PCP - General 12/28/22
--- OUTSIDE RECORDS SUMMARY | 2025-07-13 13:04 | XMS_ITS | Encounter Summary ---
Author Organization [facility] Health Address [address] [facility] [place] [address] Care Team Providers Care Undercollar Baster Name Role Phone Acacia Phan Primary Care Pr ovider Reason for Visit * Reason Onset Date Comments Referral Request 12/27/2022 Encounter Details Date Type Department Care Team (Late st Contact Info) Description 12/27/2022 Telephone [facility] [address] [facility] [address] [place] [address] Maribeth Madison MD [address] [facility] [address] [place] [address] Referral Request Social History Tobacco Use Types Packs/Day Years Used Date Smoking Tobacco: Never Assessed Comments Unknown Sex and Gender Information Value Date Recorded Sex Assigned at Not on file Legal Sex Female 4:25 AM TOBY MAKER Gender Identity Not on file Sexual Orientation Not on file documented as of this encounter Miscellaneous Notes * Telephone Encounter - Jordan Quinn - 12/27/2022 9:05 AM CDT Current Provider name:Citlaly Burgos Reason for call: Marybeth would like to verify that the patient's referral has been received. Patient Call Back number: [phone] documented in this encounter Plan of Treatment Upcoming Encounters Date Type Department Care Team (Late st Contact Info) Description 09/15/2025 10:30 AM TOBY MAKER Office Visit [facility] COIL STRAPPER [address], [facility] [address] [place] [address] Maribeth Madison MD [address] [facility] [address] [place] [address] documented as of this encounter Visit Diagnoses Not on filedocumented in this encounter Care Teams Undercollar Baster Relationship Specialty Start Date End Date Acacia Phan PA [address] [place] [phone] PCP - General 12/28/22 documented as of this encounter
== END 2025-07-13 12:56 | disposition home or self-care (01) ==
LOC: ANHFOHIMG 12:56
PROVIDERS: PCP Physician Assistant; Visit Provider Nurse Practitioner Family
DX: R92.8 Other abnormal and inconclusive findings on diagnostic imaging of breast (principal)
CPT/HCPCS: 76641; 77061; 77065; G0279

== ENCOUNTER 2025-09-04 10:00 | Outpatient (RCR) | payer OTHER, SELFPAY ==
--- NOTE | 2025-07-24 10:40 | OPREHPOC ---
Outpatient Therapy Plan of Care This is a Multidisciplinary Plan of Care that may contain components documented by all disciplines (PT, OT, and ST.) PT Problem 1 PT Problem #1 Knowledge Deficit PT Goal 1 Goal / Goal Update *independent with HEP Target Visit 10 PT Problem 2 PT Problem #2 Pain PT Goal 1 Goal / Goal Update 1* pt report pain rating of 3/10 at worst Target Visit 10 PT Problem 3 PT Problem #3 Impaired Range of Motion PT Goal 1 Goal / Goal Update increase R shoulder ROM to improve ability to perform cooking, self care tasks: active in standin* flexion 140' 2* IR- reach behind back, fingers to distal edge of scapula Target Visit 10 PT Problem 4 PT Problem #4 Impaired Strength PT Goal 1 Goal / Goal Update increase strength of R shoulder/dominant arm, to improve ability to reach into cabinets, self care and home activities: * gross strength of R shoulder 4+/5
--- NOTE | 2025-07-24 10:40 | PTOPEVAL1 ---
Assessment and note entered by Alyce Erwin PT Evaluation Information Assessment Status Evaluation ICD-10 Condition Codes (PT) Pain in right shoulder M25.511 Other ICD-10 Condition Codes ( adhesive capsulitis M75.01;bicep tendonitis M 75. PT) 21 Onset May 2025 Subjective Information gradual increase in R shoulder pain, unable to reach behind back or lift arm all the way up, shoulder painful; R hand dominant; previously had PT here for R tendonitis, was doing the exercises and had to stop because shoulder hurting so bad no recent imaging performed activity: active and no limitation in activity level; golfs; independent with all home and self care activities Reported Pain Level Pain Score 0: Self Report Additional Pain Score Comments pain range in the past week 0-8/10; lateral shoulder, hurts increase pain: reach behind back, lift arm up, lie on R side decrease pain: rest; over the counter meds PRN is not using heat or ice- discussed PRN use 10-15 minutes report with sleeping- do not awaken from sleep due to pain, but when wake up in AM, shoulder hurts Assessment PT Clinical Summary Liang has the diagnosis of R shoulder pain, adhesive capsulitis and bicep tendonitis. She is R hand dominant and has had PT here in the past for R shoulder pain. Self assessment with Quick DASH rating of 25% limitation in activity level. Pain is increased with reaching behind her back and reaching up. With the evaluation: decreased active ROM and strength of all R shoulder motions; tenderness with palpation over upper and mid biceps, posterior GH joint; rounded posture of shoulders. Skilled PT services are indicated for treatment of R shoulder adhesive capsulitis and pain: modalities for pain control, therapeutic exercises and education for HEP, posture and pain management. Plan of Care Interventions Electrical Stimulation,Hot Pack/Cold Pack,Manual Therapy,Neuro Re-education,Patient/Caregiver Education,Therapeutic Activities,Therapeutic Exercise,Ultrasound,Other Other Interventions taping PT Services Indicated Yes Treatment Frequency and 1-2x/wk for 10 visits Duration These treatments will address the objective and functional deficits as defined above. The patient will be advanced safely and appropriately in order for the patient to progress towards his/her prior level of function. Additional exercises will be introduced and as well as a comprehensive home exercise program upon discharge, if needed, ?to ensure carryover of functional gains achieved in the clinic. This treatment plan has been reviewed and agreement upon by the patient.
--- NOTE | 2025-09-04 10:47 | OPREHPOC ---
Outpatient Therapy Plan of Care This is a Multidisciplinary Plan of Care that may contain components documented by all disciplines (PT, OT, and ST.) PT Problem 1 PT Problem #1 Knowledge Deficit PT Goal 1 Goal / Goal Update *independent with HEP 09-04-25 d/c goal met Target Visit 10 Progress Met PT Problem 2 PT Problem #2 Pain PT Goal 1 Goal / Goal Update 1* pt report pain rating of 3/10 at worst 09-04-25 d/c goal not met; 4/10 at worst Target Visit 10 Progress Not Met PT Problem 3 PT Problem #3 Impaired Range of Motion PT Goal 1 Goal / Goal Update increase R shoulder ROM to improve ability to perform cooking, self care tasks: active in standin* flexion 140' 2* IR- reach behind back, fingers to distal edge of scapula 09-04-25 d/c goals met Target Visit 10 Progress Met PT Problem 4 PT Problem #4 Impaired Strength PT Goal 1 Goal / Goal Update increase strength of R shoulder/dominant arm, to improve ability to reach into cabinets, self care and home activities: * gross strength of R shoulder 4+/5 09-04-25 d/c goals met Target Visit 10 Progress Met
--- NOTE | 2025-09-04 10:47 | PTOPDC ---
Assessment and note entered by Alyce Erwin, PT Assessment Status Discharge ICD-10 Condition Codes (PT) Pain in right shoulder M25.511 Other ICD-10 Condition Codes ( adhesive capsulitis M75.01;bicep tendonitis M 75. PT) 21 Onset May 2025 Subjective Information shoulder is much better; range is better, but still have pain with moving arm back and to the side; have been doing the exercises faithfully; Reported Pain Level Pain Score Self Report Additional Pain Score Comments pain range in the past week 0-4/10; increase pain: with shoulder extension and abduction decrease pain: rest, no longer using heat or ice; no issues with sleeping, except sometimes wake up and shoulder is stiff. Assessment PT Clinical Summary Liang has received a total of 10 PT sessions. With today's assessment, she has improved in all areas: now with pain rating of 0-4/10; only motion that increases pain is shoulder extension with abduction; self assessment with Quick DASH rating of 18% limitation in activity level; active shoulder flexion 150', abduction 125', IR- reach behind back, fingers to inferior scapula and ER- reach behind back, fingers to cervical spine; education for HEP and posture. The goals were achieved, except pain rating at the worst. Discharge PT. She is to continue with her HEP. Plan of Care PT Services Indicated No
== END 2025-09-04 11:44 | disposition home or self-care (01) ==
LOC: ANHPT 10:00
PROVIDERS: PCP Physician Assistant; Visit Provider Physician Assistant
DX: M75.21 Bicipital tendinitis, right shoulder (principal); M75.01 Adhesive capsulitis of right shoulder; M25.511 Pain in right shoulder
CPT/HCPCS: 97014; 97035; 97110; 97140; 97161; 97530; G0283